=== PATIENT | male | born 1990 | race Caucasian/White ===

== ENCOUNTER 2018-05-28 19:46 | Emergency (ER) | payer OTHER ==
[~2018-05-28] VITALS: Ht 182.9 cm; Wt 172.4 kg
[2018-05-28 19:55] VITALS: BP 134/92
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
[2018-05-28] MEDS ORDERED: IBUPROFEN 800 MG TABLET. PO ONE (20:15)
[2018-05-28] MEDS ORDERED: DICL50TA4 PO (20:28)
--- NOTE | 2018-05-28 20:33 | RAD ---
Indication:injury to right hand, laceration and pain in 2nd digit TECHNIQUE: 3 views of right hand COMPARISON: None FINDINGS/ impression: No acute fracture or dislocation. No metallic foreign body. Electronically signed by: Beny Gayle DO (05/28/2018 8:30 PM) [facility]
== END 2018-05-28 20:43 | disposition home or self-care (01) ==
LOC: ER 19:46
DX: S60.221A Contusion of right hand, initial encounter (principal); W22.8XXA Striking against or struck by other objects, initial encounter; Y93.89 Activity, other specified; Y92.89 Other specified places as the place of occurrence of the external cause; Y99.8 Other external cause status
CPT/HCPCS: 73130; 99283